=== PATIENT | female | born 1985 | race Caucasian/White ===

== ENCOUNTER → 2017-05-10 14:30 | Outpatient (CLI) | payer BC, SELFPAY ==
[2017-05-10 18:43] LABS: Chlamydia Trachomatis by PCR Negative (Negative); Neisserai gonorrhoeae by PCR Negative (Negative); Probe Check PASS; Sample Adequacy Control PASS; Specimen Processing Control PASS
[2017-05-18 08:12] LABS: HPV HC, High Risk Negative (Negative)
[2017-05-18 08:13] LABS: HPV Reflexed? YES, CHARGE PATIENT
== END ==
PROVIDERS: Visit Provider Obstetrics & Gynecology
DX: Z12.4 Encounter for screening for malignant neoplasm of cervix (principal); Z11.3 Encounter for screening for infections with a predominantly sexual mode of transmission
CPT/HCPCS: 87491; 87591; 87624; 88175; G0145

== ENCOUNTER → 2017-05-25 14:31 | Outpatient (CLI) | payer BC, SELFPAY ==
[2017-05-25 17:10] LABS: Color, Urine Yellow (Yellow); Glucose, Dipstick Normal (Normal); Ketone-Dipstick Negative (Negative); Leukocyte Esterase-Dipstick Negative /ul (Negative); Nitrite-Dipstick Negative (Negative); Occult Blood-Urine Negative /ul (Negative); Protein-Dipstick Negative (Negative); Urine Bilirubin Dipstick Negative (Negative); Urine Clarity Sl. Cloudy (Clear); Urine Urobilinogen Normal (Normal)
[2017-05-25 17:17] LABS: Absolute Lymphocyte Count 2.01 X10^3/ul (0.83-4.51); Absolute Neutrophil Count 8.1 X10^3/uL (2.0-7.7); Basophil# 0.02 X10^3/uL; Basophil% 0.2 % (0-1); Eosinophil# 0.03 X10^3/uL; Eosinophils% 0.3 % (0-5); Hematocrit 40.8 % (37-47); Hemoglobin 13.6 g/dl (12.0-15.0); Lymphocyte # 2.01 X10^3/ul (4.0); Lymphocyte % 18.6 % (19-41); Mean Corp Hgb Conc 33.3 g/gl (32-36); Mean Corpuscular Hgb 30.7 pg (27.0-32.0); Mean Corpuscular Volume 92.1 fL (81-99); Mean Platelet Vol. 10.9 fl (6.2-12.0); Monocyte# 0.56 X10^3/uL; Monocyte% 5.2 % (0-10); Neutrophil # 8.13 X10^3/uL (2.7-7.7); Neutrophil % 75.4 % (47-70); Platelet Count 325 K/mm3 (150-450); RBC Distribution Width SD 43.4 fl (35.1-43.9); Red Blood Count 4.43 M/mm3 (4.2-5.4); White Blood Count 10.8 K/mm3 (4.4-11.0)
[2017-05-25 17:19] LABS: POSITIVE COUNT NO; POSITIVE DIFFERENTIAL NO; POSITIVE MORPHOLOGY NO
[2017-05-25 18:01] LABS: Thyroid Stim Hormone (TSH) 0.45 uIU/mL (0.358-3.74)
[2017-05-25 18:39] LABS: HIV - WCH Non-Reactive (Nonreactive); Rubella IgG 155.9 IU/mL
[2017-05-27 10:10] LABS: HEPATITIS B SURFACE AG Negative (Negative); Hep C Antibodies 0.1 s/co ratio (0.0-0.9)
[2017-06-01 03:14] LABS: Prenatal RPR NONREACTIVE (NONREACTIVE)
== END ==
PROVIDERS: Visit Provider Obstetrics & Gynecology
DX: Z34.81 Encounter for supervision of other normal pregnancy, first trimester (principal); Z3A.00 Weeks of gestation of pregnancy not specified
CPT/HCPCS: 36415; 81002; 84443; 85025; 86703; 86762; 86803; 87340

== ENCOUNTER → 2017-06-22 11:55 | Outpatient (CLI) | payer BC, SELFPAY ==
[2017-06-22 13:47] LABS: Anion Gap 6 (5-15); BUN 8 mg/dL (7-18); BUN/Creat Ratio 12.6 RATIO (10-20); Calcium,Total 8.5 mg/dL (8.5-10.1); Chloride 106 mmol/L (98-107); Creatinine, Serum 0.63 mg/dL (0.55-1.02); EST Glomerular Filtration Rate 117 mL/min (>60); Est Glom Filt Rate - Afr Amer 142 mL/min (>60); Glucose 92 mg/dL (74-106); Potassium 3.9 mmol/L (3.5-5.1); Sodium Level 137 mmol/L (136-145)
== END ==
PROVIDERS: Visit Provider Obstetrics & Gynecology
DX: O21.9 Vomiting of pregnancy, unspecified (principal); Z3A.00 Weeks of gestation of pregnancy not specified
CPT/HCPCS: 36415; 80048

== ENCOUNTER → 2017-07-16 14:54 | Outpatient (CLI) | payer BC, SELFPAY | PROVIDERS: Visit Provider Obstetrics & Gynecology | DX: J02.9 Acute pharyngitis, unspecified (principal) | CPT/HCPCS: 87880 ==

== ENCOUNTER → 2017-09-28 10:17 | Outpatient (CLI) | payer BC, SELFPAY ==
[2017-09-28 13:50] LABS: Hematocrit 34.6 % (37-47); Hemoglobin 11.5 g/dl (12.0-15.0); Mean Corp Hgb Conc 33.2 g/gl (32-36); Mean Corpuscular Hgb 30.4 pg (27.0-32.0); Mean Corpuscular Volume 91.5 fL (81-99); Mean Platelet Vol. 10.5 fl (6.2-12.0); Platelet Count 252 K/mm3 (150-450); RBC Distribution Width CV 12.9 % (11.6-14.6); RBC Distribution Width SD 42.7 fl (35.1-43.9); Red Blood Count 3.78 M/mm3 (4.2-5.4); White Blood Count 10.1 K/mm3 (4.4-11.0)
[2017-09-28 13:55] LABS: Scan Indicated on CBC? Y/N NO
[2017-09-28 14:10] LABS: Glucose Challenge Gest 1H 50g 137 mg/dL (70-140)
== END ==
PROVIDERS: Visit Provider Obstetrics & Gynecology
DX: Z34.82 Encounter for supervision of other normal pregnancy, second trimester (principal)
CPT/HCPCS: 36415; 82950; 85027

== ENCOUNTER 2017-11-16 12:20 | Outpatient (CLI) | payer BC, SELFPAY ==
[2017-11-16 12:26] VITALS: BMI 36.6
[2017-11-16 13:05] LABS: ROM Internal Control Test YES-OK TO RESULT pt. (Internal QC); ROM Patient Test Negative (Negative)
--- NOTE | 2017-11-17 09:36 | OB.TRI.NOTE ---
History of Present Illness Date of Service: 11/16/17 Was patient seen by the physician?: No Reason For Visit: FALL Date of Service: 11/16/17 Final JUANCHO: 12/22/17 Gestational age: 34 Weeks and 6 Days History of Present Illness: 34+ week IUP presents s/p minor fall. Allergies Penicillins Allergy (Verified 11/16/17 12:41) Anaphylaxis NST - FHR Rate Baby A NST Reactive:: Yes FHR Category:: Category I Impression/Plan 34+ week IUP s/p minor fall. Reactive NST. ROM negative. Release to home with routine instructions.
== END 2017-11-16 13:55 | disposition home or self-care (01) ==
LOC: WPOUT 12:23 → WP 12:24
PROVIDERS: Visit Provider Obstetrics & Gynecology
DX: O26.93 Pregnancy related conditions, unspecified, third trimester (principal); W19.XXXA Unspecified fall, initial encounter; Y93.9 Activity, unspecified; Y92.9 Unspecified place or not applicable; Y99.9 Unspecified external cause status; Z3A.34 34 weeks gestation of pregnancy
CPT/HCPCS: 59025; 59050; 84112; 99218; G0378

== ENCOUNTER → 2017-11-23 11:17 | Outpatient (CLI) | payer BC, SELFPAY ==
[2017-11-23 11:50] LABS: ROM Internal Control Test YES-OK TO RESULT pt. (Internal QC); ROM Patient Test Negative (Negative)
== END ==
PROVIDERS: Visit Provider Obstetrics & Gynecology
DX: Z34.83 Encounter for supervision of other normal pregnancy, third trimester (principal)
CPT/HCPCS: 84112

== ENCOUNTER 2017-12-18 05:25 | Inpatient (IN) | payer BC, SELFPAY ==
[2017-12-13 11:00] VITALS: BMI 37.4
[2017-12-18] VITALS (24 sets, daily range): BP systolic 90–131; BP diastolic 42–71; PULSE 50–107; RESP 14–18; TEMP 35.9–36.8; O2SAT 97–100; BMI 37.7
--- NOTE | 2017-12-18 | FALS_PTH ---
PATIENT: MARA MOY LOC: [facility] U#:[id number] AGE/SX: 32/F ROOM: WP004 RE12/18/[address]: Dr. Ca Cervantes MD : 1985 BED: 1 DIS: 12/20/2017 SPEC #: [id number] RECD: 12/18/17 11:30 STATUS: JAYDEN RETyler #: [id number] STEFANIE: 12/18/17 00:[address]: Ca Cervantes DEPT: SURGICAL PATHOLOGY RECD BY: Juan Chacko ENTERED: 12/18/17 11:30 SP TYPE: FALL TUBES OTHR DR: No Primary Care Phys Tissues: Fallopian tube Procedures: Surgery Specimen Level II HEADER OPERATION: Tubal ligation PRE-OP DIAGNOSIS: Desires sterilization TISSUE SUBMITTED: Fallopian tubes, suture in right tube MICROSCOPIC DIAGNOSIS Bilateral fallopian tubes, tubal ligation: Completely transected segment of bilateral fallopian tubes, no pathologic diagnosis. FRIEDA:eliana 12/19/17 MICROSCOPIC DESCRIPTION Slides are reviewed. GROSS DESCRIPTION Received in fixative is one container labeled with the patient's name and designated right with suture. The specimen consists of two tubular pieces of moreno soft tissue with the right identified with a suture and measures 0.8 cm in length and 0.7 cm in diameter and is inked black. The left tube measures 1 cm in length and 0.7 cm in diameter. The entire specimen is submitted in one cassette. Both pieces will be sectioned at the time of embedding. / FRIEDA:eliana 12/18/17 TC: 4 CPT: 95572 x2
[2017-12-18] MEDS: Lactated Ringers 1,000 ML 999 ML IV (05:40)
[2017-12-18 06:12] LABS: Absolute Lymphocyte Count 2.76 X10^3/ul (0.83-4.51); Absolute Neutrophil Count 7.8 X10^3/uL (2.0-7.7); Basophil# 0.05 X10^3/uL; Basophil% 0.4 % (0-1); Eosinophils% 0.8 % (0-5); Hematocrit 32.7 % (37-47); Hemoglobin 10.3 g/dl (12.0-15.0); Lymphocyte # 2.76 X10^3/ul (4.0); Lymphocyte % 23.3 % (19-41); Mean Corp Hgb Conc 31.5 g/gl (32-36); Mean Corpuscular Volume 85.8 fL (81-99); Mean Platelet Vol. 11.1 fl (6.2-12.0); Monocyte# 1.02 X10^3/uL; Monocyte% 8.6 % (0-10); Neutrophil % 65.8 % (47-70); Platelet Count 286 K/mm3 (150-450); RBC Distribution Width CV 13.8 % (11.6-14.6); RBC Distribution Width SD 42.2 fl (35.1-43.9); Red Blood Count 3.81 M/mm3 (4.2-5.4); White Blood Count 11.9 K/mm3 (4.4-11.0)
[2017-12-18 06:14] LABS: POSITIVE COUNT NO; POSITIVE DIFFERENTIAL NO; POSITIVE MORPHOLOGY NO
[2017-12-18 06:16] LABS: Partial Thromboplast Time 28.5 Seconds (24.1-36.2)
[2017-12-18] MEDS: Lactated Ringers 1,000 ML 150 ML IV (06:47)
[2017-12-18] MEDS: Sodium Citrate/Citric Acid 30 ML UDC PO (06:50)
--- NOTE | 2017-12-18 07:13 | PCM.DCCSEC ---
Discharge Diet: No Restrictions Discharge Activity: May Shower, May Take a Tub Bath Return to work on:: 01/28/18 May resume sexual activity in: 4-6 weeks Lifting Restrictions: 20 pounds Additional Activity Instructions:: Nothing in the vagina for 4-6 weeks. You may return to work/school in 6 weeks. Change Dressing in (Days):: 4 Remove Dressing in (days):: 4 Cleanse incision/area with: Soap & Water, Keep Dressing Clean & Dry Additional Instructions: If you experience any of the following, contact your healthcare provider. Bleeding that soaks a pad every hour for 2 hours Fever 100.4 or higher Unrelieved incision or abdominal pain Swelling, redness, discharge or bleeding from your incision Problems urinating (including inability to urinate or burning while urinating). Visual changes Severe headache Flu-like symptoms Pain or redness in one of both of your breasts Pain, warmth, tenderness or swelling in your legs, especially the calf area Frequent nausea and vomiting Symptoms of depression or anxiety If you experience any of the following, call 911 or go to the nearest Emergency Room. Chest pain Problems breathing Seizure activity Partial or complete paralysis of a body part, slurred speech, weakness or drooping of the face, or a sudden inability to walk or hold your balance Allergies/Adverse Reactions: Allergies Penicillins Allergy (Verified 12/13/17 11:15) Anaphylaxis Medications to take at Discharge Docusate Sodium [Colace] 100 mg PO BID PRN #30 capsule 12/18/17 Naproxen [Naprosyn] 250 - 500 mg PO TID PRN #30 tablet 12/18/17 Oxycodone [Oxyir] 5 - 10 mg PO Q6H PRN PRN 7 Days #20 tablet 12/18/17 The following prescriptions were given: Oxycodone [Oxyir] 5 - 10 mg PO Q6H PRN PRN 7 Days #20 tablet PRN Reason: Mod-Severe Pain (-12/12) Docusate Sodium [Colace] 100 mg PO BID PRN #30 capsule Naproxen [Naprosyn] 250 - 500 mg PO TID PRN #30 tablet PRN Reason: Mild-Mod Pain (-07/12) Follow-Up: Call to make an appointment with your doctor for an incision check in 1-2 weeks. You will also need a 6 week post- follow up appointment. Test results from this visit will be discussed in further detail at your follow-up appointment, if applicable. Please Follow Up With: Ca Cervantes MD - [phone] When: Call to make an appointment for an incision check in 2 weeks. Primary Care Physician: Care Physician,No Primary [Primary Care Provider] - Proposed Discharge Date: 12/21/17
--- NOTE | 2017-12-18 07:18 | DCINST_ITS ---
Discharge Diet: No Restrictions Discharge Activity: May Shower, May Take a Tub Bath Return to work on:: 01/28/18 May resume sexual activity in: 4-6 weeks Lifting Restrictions: 20 pounds Additional Activity Instructions:: Nothing in the vagina for 4-6 weeks. You may return to work/school in 6 weeks. Change Dressing in (Days):: 4 Remove Dressing in (days):: 4 Cleanse incision/area with: Soap & Water, Keep Dressing Clean & Dry Additional Instructions: If you experience any of the following, contact your healthcare provider. * Bleeding that soaks a pad every hour for 2 hours * Fever 100.4 or higher * Unrelieved incision or abdominal pain * Swelling, redness, discharge or bleeding from your incision * Problems urinating (including inability to urinate or burning while urinating). * Visual changes * Severe headache * Flu-like symptoms * Pain or redness in one of both of your breasts * Pain, warmth, tenderness or swelling in your legs, especially the calf area * Frequent nausea and vomiting * Symptoms of depression or anxiety If you experience any of the following, call 911 or go to the nearest Emergency Room. * Chest pain * Problems breathing * Seizure activity * Partial or complete paralysis of a body part, slurred speech, weakness or drooping of the face, or a sudden inability to walk or hold your balance Allergies/Adverse Reactions: Allergies Penicillins Allergy (Verified 12/13/17 11:15) Anaphylaxis Medications to take at Discharge Docusate Sodium [Colace] 100 mg PO BID PRN #30 capsule 12/18/17 Naproxen [Naprosyn] 250 - 500 mg PO TID PRN #30 tablet 12/18/17 Oxycodone [Oxyir] 5 - 10 mg PO Q6H PRN PRN 7 Days #20 tablet 12/18/17 The following prescriptions were given: Oxycodone [Oxyir] 5 - 10 mg PO Q6H PRN PRN 7 Days #20 tablet PRN Reason: Mod-Severe Pain (-12/12) Docusate Sodium [Colace] 100 mg PO BID PRN #30 capsule Naproxen [Naprosyn] 250 - 500 mg PO TID PRN #30 tablet PRN Reason: Mild-Mod Pain (-07/12) Follow-Up: Call to make an appointment with your doctor for an incision check in 1-2 weeks. You will also need a 6 week post- follow up appointment. Test results from this visit will be discussed in further detail at your follow- up appointment, if applicable. Please Follow Up With: Ca Cervantes MD - [phone] When: Call to make an appointment for an incision check in 2 weeks. Primary Care Physician: Care Physician,No Primary [Primary Care Provider] - Proposed Discharge Date: 12/21/17
[2017-12-18] MEDS: Oxytocin 30 units/NS 500 ml 30 UNITS/500 ML IV.SOLN 167 UNITS IV (07:51)
[2017-12-18] MEDS: miSOPROStol 200 MCG Tablet 800 MCG RECTAL (08:25)
--- NOTE | 2017-12-18 08:29 | OP.PCM_ITS ---
Operative Report Date of Procedure: 12/18/17 PROCEDURE: Repeat C section. Bilateral partial salpingectomy Preoperative diagnosis: 39 wk EGA Prior C section, planned repeat C section Sterilization request H/O delayed postop anemia Postop diagnosis: 39 wk EGA Prior C section, planned repeat C section Sterilization request. H/o delayed postop anemia Anesthesia: Anibal, Dr Michael Surgeon: Ca Cervantes MD Underwriting Service Representative: LIONEL Robb and LIONEL Naidu EBL 600 cc Complications: none Drains: Ann draining clear yellow appearing urine Fluids: replacement LR Findings: At amniotomy, clear fluid was noted. Lizarraga viable male in vertex presentation. Apgars 8/9, Baby weight: 9#1 oz There was a normal appearing uterus, fallopian tubes and ovaries bilaterally. There were minimal filmy adhesions between the bladder and lower uterine segment. The lower uterine segment was thin, and a defect was noted and oversewn to repair and for hemostasis. PATH: Routine cord gases were sent. Narrative account: After the risks, benefits and alternatives of the procedure were reviewed with the patient, informed consent was obtained. The patient was taken to the Operating room with an IV running, and placed in a seated position on the operating table for placement of the spinal. Once the spinal had been administered, she was briefly frog-legged for Ann catheter placement, and then repositioned to dorsal supine position with leftward displacement of the uterus, and prepped and draped in the usual sterile fashion. Rosario had some initial hypotension after the spinal which required ephedrine. (See anesthesia record for medications given). Her nausea, vomiting responded to medications given. Once this resolved, and the spinal was deemed adequate, a Pfannenstiel skin incision was created using the knife (through the prior skin incision scar). The incision was carried down to the rectus fascia using the knife. The fascia was nicked in the midline. The fascial incision was extended bilaterally using curved Romero scissors. The superior aspect of the fascial incision was grasped with Sharonda clamps and tented up and the underlying rectus abdominal muscles were dissected free. In a similar manner, the inferior aspect of the facial incision was grasped with Sharonda clamps tented up and the underlying rectus abdominal muscles were dissected free. The rectus abdominis muscles were in the midline and the peritoneum was identified and entered by blunt dissection high in the incision. The peritoneum was stretched laterally and a bladder blade was inserted. A bladder flap was created along the lower uterine segment with Metzenbaum scissors . The uterine incision was then created using Metzenbaum scissors. The operators fingertips were used to extend the uterine incision by blunt dissection in a caudad- cephalad orientation . Clear fluid was noted at amniotomy. The vertex was then delivered atraumatically through the incision. The OP and nares were bulb suctioned on the abdomen. The shoulders delivered easily. The cord clamped x two and cut. And the infant was handed off to the nurse awaiting delivery after briefly showing him to his parents. The baby had a spontaneous, vigorous cry. The placenta was then delivered. The uterus was exteriorized and cleared of clots and debris . The uterine incision was repaired with 1 Vicryl in a running locked fashion. The lower uterine segment was extremely thin and a vertical tear was noted. The bilateral partial salpingectomy was performed as follows. the R fallopian tube was tented up with a [place]araka clamp and a window was created in the mesosalpinx using Bovie cautery. The proximal and distal fallopian tube adjacent to the peritoneal defect were ligated with 2-0 Catgut. A knuckle of the fallopian tube was tented up and a third ligature was placed inferior to the other two. A segment of the fallopian tube was excised with Metzenbaum scissors and set aside for later pathology review. The stumps of the fallopian tube were Bovie cauterized for hemostasis . The left fallopian partial salpingectomy was performed likewise. At this point the uterus was returned to the abdominal cavity. The gutters were cleared of clots and debris and the incision at the uterus was inspected. The vertical tear at the lower uterine segment was oversewn with a figure of 8 stitch of 1 Vicryl. A second imbricating layer was then placed, using 1 Monocryl in running nonlocked fashion , reapproximating the bladder flap for hemostasis. Bovie cautery was used to treat any bleeding areas . Excellent hemostasis was noted. The peritoneal edges and rectus abdominis muscles were reapproximated in the midline with interrupted vertical mattress stitches of 1 Vicryl. Excellent hemostasis was noted at the subfascial space The fascia was closed in a running nonlocked fashion with a Stratofix. The Subcutaneous fatty tissue was liberally dusted with Ryan for hemostasis and to prevent seroma formation. This layer was then reapproximated in a running 3-0 Vicryl to eliminate space. The skin edges were closed in a Subcuticular stitch of 4- 0 Monocryl. The incision was cleansed. Cavilon, Steristrips, and Mepilex dressing were applied to the skin . The patient was then transferred to the recovery room bed in stable condition after tolerating the procedure well. Sponge, lap, needle and instrument counts correct times two. Medications given preop and intraoperatively included: Ancef IV given motor power connector to the operating room. The patient also received Pitocin given IV after cord clamp, and Toradol 30 mg IV times one. Ephedrine for hypotension. Cytotec 800 mcg per rectum for her history of postoperative anemia, delayed, after her first C section. For a complete listing of medications given preop and intraoperatively, please see the anesthesia record.
--- NOTE | 2017-12-18 08:31 | PCM.IMDPSTOP ---
Immediate Post-Op Note Primary Surgeon/Physician: Ca Cervantes
[2017-12-18] MEDS: Lactated Ringers 1,000 ML 100 ML IV ×2 (08:50→16:29)
--- NOTE | 2017-12-18 08:51 | OP.PN_ITS ---
Immediate Post-Op Note Primary Surgeon/Physician: Ca Cervantes
[2017-12-18] MEDS: Scopolamine 1mg/72hr Patch 1 PATCH TRANSDERM. (09:26)
[2017-12-18] MEDS: proMETHazine 25 MG/ML Syringe 12.5 MG IV (11:48)
[2017-12-18] MEDS: Ketorolac 30 MG/ML Syringe IV ×2 (15:16→21:23)
--- NOTE | 2017-12-18 17:53 | CPS ---
patient nursing baby right now, she will start incentive when done
[2017-12-18] MEDS: 0.9% Saline Lock 10 ML Syringe IV (21:23)
[2017-12-19] VITALS (7 sets, daily range): BP systolic 107–112; BP diastolic 45–62; PULSE 78–107; RESP 15–18; TEMP 36.1–36.9; O2SAT 96–100
[2017-12-19] MEDS: Ketorolac 30 MG/ML Syringe IV ×4 (03:12→22:53)
[2017-12-19] MEDS: 0.9% Saline Lock 10 ML Syringe IV ×3 (03:13→16:42)
[2017-12-19] MEDS: Lactated Ringers 1,000 ML 100 ML IV (03:13)
[2017-12-19 06:09] LABS: Hematocrit 26.6 % (37-47); Hemoglobin 8.6 g/dl (12.0-15.0); Mean Corp Hgb Conc 32.3 g/gl (32-36); Mean Corpuscular Hgb 28.2 pg (27.0-32.0); Mean Corpuscular Volume 87.2 fL (81-99); Mean Platelet Vol. 10.7 fl (6.2-12.0); Platelet Count 245 K/mm3 (150-450); RBC Distribution Width CV 13.6 % (11.6-14.6); RBC Distribution Width SD 41.7 fl (35.1-43.9); Red Blood Count 3.05 M/mm3 (4.2-5.4); White Blood Count 14.4 K/mm3 (4.4-11.0)
[2017-12-19 06:17] LABS: Scan Indicated on CBC? Y/N NO
--- NOTE | 2017-12-19 07:39 | PCM.PN.OB ---
Subjective: POD#1 Repeat C/S and BPS Doing well. No concerns voiced. States baby cluster feeding, about every 45 min all night. Poor sleep Very minimal pain, soreness. Asking about possible dischg home tomorrow. - Physical Exam General: Alert, Oriented x3, Cooperative, No apparent distress HEENT: Atraumatic Neck: Supple Abdomen: Soft - Fundus firm NT at 1-2 cm inferior to umbilicus Skin: Incision - Mepilex CDI. Three 1 cm areas of old blood, shadow drainage marked without extension. Neurological: Cranial nerves II-XII grossly intact Psych/Mental Status: Normal Affect Vital Signs Temp Pulse Resp BP Pulse Ox 98.5 F 78 16 107/51 L 98 12/19/17 00:00 12/19/17 05:37 12/19/17 05:37 12/19/17 04:00 12/19/17 05:37 Oxygen Flow Rate (L/min) 2 Oxygen Delivery Method Room Air Weight: 93.6 kg Body Mass Index (BMI) 37.7 Intake and Output for Last 24 Hours 12/17/12/18/18 12/19/17 23:59 23:59 23:59 Intake Total 1300 / 1300 1015 / 1015 Output Total 400 / 400 950 / 950 Balance 900 / 900 65 / 65 Laboratory Tests Past 24 Hrs 12/19/17 05:47 WBC 14.4 H RBC 3.05 L Hgb 8.6 L Hct 26.6 L MCV 87.2 MCH 28.2 MCHC 32.3 RDW 13.6 RDW Differential 41.7 Plt Count 245 MPV 10.7 Medical Necessity - Tobacco Use Smoking Status: Never smoker Assessment/Plan POD#1 Repeat C/S and BPS Doing well. Pain minimal. Increase diet and activity as tolerated. Begin po meds. D/C Ann for voiding trial. Continue care. PREOPERATIVE iron deficiency anemia, with superimposed acute blood loss anemia. As expected with operative blood loss, IV hydration Ferrous sulfate 325 mg po bid
[2017-12-19] MEDS: Ferrous Sulfate 325 MG Tablet PO ×2 (12:51→16:43)
[2017-12-19] MEDS: oxyCODONE 5 MG Tablet PO ×2 (13:01→21:35)
[2017-12-19 15:06] LABS: Pathology Specimen OB SEE PATHOLOGY REPORT
[2017-12-20 02:45] VITALS: BP 108/53; PULSE 86; RESP 18; TEMP 36.8; O2SAT 100
[2017-12-20] MEDS: Ketorolac 30 MG/ML Syringe IV (05:53)
[2017-12-20] MEDS: 0.9% Saline Lock 10 ML Syringe IV (05:53)
[2017-12-20 10:00] VITALS: BP 111/49; PULSE 98; RESP 20; TEMP 36.9
== END 2017-12-20 11:50 | disposition home or self-care (01) | DRG 784 ==
PROVIDERS: Admitting Provider Obstetrics & Gynecology; Visit Provider Obstetrics & Gynecology
PROC: 10D00Z1 Extraction of Products of Conception, Low, Open Approach (ICD-10-PCS; CPT 59514; principal; 2017-12-18 07:15)
DX: O34.219 Maternal care for unspecified type scar from previous cesarean delivery (principal); Z30.2 Encounter for sterilization; D62 Acute posthemorrhagic anemia; D50.9 Iron deficiency anemia, unspecified; Z3A.39 39 weeks gestation of pregnancy; Z37.0 Single live birth
CPT/HCPCS: 85025; 85027; 85610; 85730; 86850; 86900; 88302; 99218; J7120; 90686; A4216; G0378; J2405

== ENCOUNTER → 2017-12-31 11:11 | Outpatient (CLI) | payer BC, SELFPAY ==
[2017-12-31 13:43] LABS: Hematocrit 36.5 % (37-47); Hemoglobin 11.5 g/dl (12.0-15.0); Mean Corp Hgb Conc 31.5 g/gl (32-36); Mean Corpuscular Hgb 27.4 pg (27.0-32.0); Mean Corpuscular Volume 86.9 fL (81-99); Mean Platelet Vol. 10.1 fl (6.2-12.0); Platelet Count 505 K/mm3 (150-450); RBC Distribution Width SD 43.1 fl (35.1-43.9)
[2017-12-31 13:44] LABS: Scan Indicated on CBC? Y/N NO
== END ==
PROVIDERS: Visit Provider Obstetrics & Gynecology
DX: D64.9 Anemia, unspecified (principal)
CPT/HCPCS: 36415; 85027

== ENCOUNTER → 2018-03-15 15:47 | Outpatient (CLI) | payer OTHER, SELFPAY ==
[2017-12-18 05:40] VITALS: BMI 37.7
[2018-03-15 16:55] LABS: Thyroid Stim Hormone (TSH) 1.07 uIU/mL (0.358-3.74); Vitamin D,25 Hydroxy 18.8 ng/mL (29.95-100.01)
== END ==
PROVIDERS: Visit Provider Obstetrics & Gynecology
DX: F53.0 Postpartum depression (principal)
CPT/HCPCS: 36415; 82306; 84443

== ENCOUNTER → 2019-02-19 09:39 | Outpatient (CLI) | payer OTHER, SELFPAY ==
[2019-01-15 09:34] VITALS: BMI 37.7
[2019-02-19 10:59] LABS: Vitamin D,25 Hydroxy 18.2 ng/mL (29.95-100.01)
[2019-02-21 12:07] LABS: Age Gdln ACOG Testing 30-65 (.)
[2019-02-21 16:31] LABS: HPV APTIMA, High Risk Negative (Negative); HPV Reflexed? YES, CHARGE PATIENT
== END ==
PROVIDERS: Visit Provider Obstetrics & Gynecology
DX: E55.9 Vitamin D deficiency, unspecified (principal); Z12.4 Encounter for screening for malignant neoplasm of cervix
CPT/HCPCS: 36415; 82306; 87624; 88175; G0145

== ENCOUNTER → 2019-10-06 14:08 | Outpatient (CLI) | payer OTHER, SELFPAY ==
[2019-10-06 13:54] VITALS: BMI 37.7
[2019-10-06 15:15] LABS: Absolute Lymphocyte Count 3.39 X10^3/uL (0.83-4.51); Absolute Neutrophil Count 5.8 X10^3/uL (2.0-7.7); Basophil# 0.05 X10^3/uL; Basophil% 0.5 % (0-1); Eosinophil# 0.09 X10^3/uL; Eosinophils% 0.9 % (0-5); Hematocrit 39.9 % (37-47); Hemoglobin 13.1 g/dL (12.0-15.0); Lymphocyte # 3.39 X10^3/ul (4.0); Lymphocyte % 34.3 % (19-41); Mean Corp Hgb Conc 32.8 g/dL (32-36); Mean Corpuscular Hgb 30.5 pg (27.0-32.0); Mean Corpuscular Volume 92.8 fL (81-99); Mean Platelet Vol. 10.6 fl (6.2-12.0); Monocyte# 0.55 X10^3/uL; Monocyte% 5.6 % (0-10); NRBC Flagged by Analyzer 0 % (0-5); Neutrophil # 5.78 X10^3/uL (2.7-7.7); Neutrophil % 58.4 % (47-70); Platelet Count 368 K/mm3 (150-450); RBC Distribution Width CV 12.3 % (11.6-14.6); RBC Distribution Width SD 41.1 fl (35.1-43.9); White Blood Count 9.9 K/mm3 (4.4-11.0)
[2019-10-06 15:30] LABS: AST(SGOT) 11 U/L (15-37); Alanine Aminotransfer ALT/SGPT 20 U/L (13-56); Albumin, Serum 4.2 g/dL (3.2-5.0); Alkaline Phosphatase 56 U/L (45-117); Anion Gap 8 (5-15); BUN 15 mg/dL (7-18); Calcium,Total 9.5 mg/dL (8.5-10.1); Chloride 108 mmol/L (98-107); Cholesterol 187 mg/dL (200); Creatinine, Serum 0.88 mg/dL (0.55-1.02); EST Glomerular Filtration Rate 79 mL/min (>60); Est Glom Filt Rate - Afr Amer 96 mL/min (>60); Glucose 95 mg/dL (74-106); High Density Lipoprotein 41 mg/dL; Potassium 3.7 mmol/L (3.5-5.1); Protein, Total 8.2 g/dL (6.4-8.2); Sodium Level 139 mmol/L (136-145); Triglycerides 125 mg/dL; Very Low Density Lipoprotein 25 mg/dL (5-40)
== END ==
PROVIDERS: PCP Internal Medicine; Referring Provider Internal Medicine; Visit Provider Internal Medicine
DX: Z00.00 Encounter for general adult medical examination without abnormal findings (principal)
CPT/HCPCS: 36415; 80053; 80061; 85025

== ENCOUNTER → 2020-04-09 09:51 | Outpatient (CLI) | payer OTHER, SELFPAY ==
[2020-04-09 09:23] VITALS: BMI 32.1
[2020-04-09 12:23] LABS: Absolute Neutrophil Count 2.5 X10^3/uL (2.0-7.7); Basophil# 0.03 X10^3/uL; Basophil% 0.6 % (0-1); Eosinophil# 0.11 X10^3/uL; Eosinophils% 2.3 % (0-5); Hematocrit 39.2 % (37-47); Hemoglobin 13.3 g/dL (12.0-15.0); Lymphocyte % 37.7 % (19-41); Mean Corp Hgb Conc 33.9 g/dL (32-36); Mean Corpuscular Hgb 31.1 pg (27.0-32.0); Mean Corpuscular Volume 91.8 fL (81-99); Mean Platelet Vol. 10.7 fl (6.2-12.0); Monocyte# 0.34 X10^3/uL; Monocyte% 7.1 % (0-10); NRBC Flagged by Analyzer 0 % (0-5); Neutrophil # 2.49 X10^3/uL (2.7-7.7); Neutrophil % 52.1 % (47-70); Platelet Count 331 K/mm3 (150-450); RBC Distribution Width CV 12.3 % (11.6-14.6); RBC Distribution Width SD 41.1 fl (35.1-43.9); Red Blood Count 4.27 M/mm3 (4.2-5.4); White Blood Count 4.8 K/mm3 (4.4-11.0)
[2020-04-09 13:06] LABS: AST(SGOT) 18 U/L (15-37); Alanine Aminotransfer ALT/SGPT 29 U/L (13-56); Alkaline Phosphatase 61 U/L (45-117); Anion Gap 8 (5-15); BUN 13 mg/dL (7-18); BUN/Creat Ratio 16.2 RATIO (10-20); Calcium,Total 8.8 mg/dL (8.5-10.1); Chloride 107 mmol/L (98-107); EST Glomerular Filtration Rate 88 mL/min (>60); Est Glom Filt Rate - Afr Amer 106 mL/min (>60); Glucose 97 mg/dL (74-106); Potassium 3.9 mmol/L (3.5-5.1); Sodium Level 139 mmol/L (136-145); T4 Free Direct 1.13 ng/dL (0.76-1.46)
[2020-04-09 13:21] LABS: Vitamin B12 619 pg/mL (211-911); Vitamin D,25 Hydroxy 15.2 ng/mL
== END ==
PROVIDERS: Nurse Practitioner Family; PCP Internal Medicine; Referring Provider Internal Medicine; Visit Provider Internal Medicine
DX: E56.9 Vitamin deficiency, unspecified (principal); R53.83 Other fatigue
CPT/HCPCS: 36415; 80053; 82306; 82607; 84439; 84443; 85025

== ENCOUNTER 2020-06-16 07:08 | Emergency (ER) | payer OTHER, SELFPAY ==
[2020-04-09 09:23] VITALS: BMI 32.1
[2020-06-16 07:09] VITALS: BP 153/92; PULSE 68; RESP 16; TEMP 36.6; O2SAT 99; BMI 33.0
--- NOTE | 2020-06-16 07:12 | CT_ITS ---
STUDY: CT ABDOMEN AND PELVIS WITHOUT CONTRAST REASON FOR EXAM: Female, 34 years old. Kidney Stone RADIATION DOSAGE (If Supplied By Facility): CTDIvol = ( 10.32 ) mGy, DLP = ( 515.85 ) mGycm TECHNIQUE: Transaxial images were obtained from the dome of the diaphragm to the symphysis pubis without oral contrast, and without intravenous contrast. Sagittal and coronal images were reconstructed. Individualized dose optimization techniques were used for this CT. COMPARISON: None. FINDINGS: The visualized lung bases are unremarkable. Normal liver. There are surgical clips in the gallbladder fossa consistent with a prior cholecystectomy. Normal spleen. Normal pancreas. There are small calcifications of the right adrenal glands. There is mild hydroureteronephrosis on the right. There is a 3 mm calcification at the right UVJ/bladder (axial image #150 series 2) There is a 2 mm calcification at the inferior pole of the left kidney. There is no hydronephrosis. Normal visualized stomach. Normal small intestine. There is mild amount retained stool within the colon. The appendix is visualized and appears normal. Normal abdominal aorta. Normal urinary bladder. Normal abdominal wall. Normal osseous structures. CT/Abdomen/Pelvis without Cont IMPRESSION: 3 mm right UVJ calculus with mild hydroureteronephrosis. small left renal calculus. Mild fecal stasis. Electronically Signed: Sejal Hernandez MD at 8:36 EDT Tel , Service support ,
--- NOTE | 2020-06-16 07:17 | ED.DCSUM_ITS ---
History of Present Illness Chief Complaint: Flank Pain Informant: Patient Narrative: 34-year-old female presents with 1 hour of right flank and lower abdominal pain. She states she has a history of kidney stones and this feels similar. In 2017 she states that while she was in [place] she had lithotripsy and stent placement. Pain began suddenly this morning is severe and stabbing. She notes nausea and vomiting. No fevers. No dysuria. - Past Medical History (1) Chronic constipation Status: Chronic Past Medical History - Allergies and Home Meds Allergies/Adverse Reactions: Allergies Penicillins Allergy (Verified 06/16/20 07:09) Anaphylaxis Primary Care Physician: Jose Zhao MD [Primary Care Provider] - Past Medical History: - - Kidney stone history Surgical History: - - 2017 lithotripsy with ureteral stent Smoking Status: Never smoker Drugs: None Review of Systems General: Denies: Chills, Fever, Sweats Eyes: Denies: Visual changes - bilaterally, Diplopia ENT: Denies: Rhinorrhea, Sore throat Cardiovascular: Denies: Chest pain, Palpitations Respiratory: Denies: Dyspnea, Cough, Dyspnea on exertion Gastrointestinal: Reports: Abdominal pain, Nausea, Vomiting. Denies: Diarrhea, Melena, Hematochezia Genitourinary: Reports: - - Right flank pain. Denies: Dysuria, Hematuria, Frequency Musculoskeletal: Denies: Back pain, Extremity Pain Skin: Denies: Rash, Wounds Neurological: Denies: Headache, Weakness, Numbness Physical Exam Vital Signs/Narrative: Vital Signs Temp Pulse Resp BP Pulse Ox 06/16/20 07:09 98 F 68 16 153/92 H 99 Inital Vital Signs reviewed: Yes General: Well nourished, Well developed, No Acute Distress, - - Patient appears very uncomfortable. She is holding a bag of emesis. Head: Normocephalic, Atraumatic Eyes: Perrl, EOMI ENT: Moist mucous membranes, No rhinorrhea Neck: Supple, Nontender Cardiovascular: Regular rate, Regular rhythm, No murmurs Respiratory: No distress, CTA bilaterally, Chest nontender Abdomen: Soft, Nontender, Nondistended, Normal bowel sounds Back: Nontender, Normal Inspection Extremities: Nontender, No edema Skin: Normal color, No rash Neurological: Alert, Oriented x3, Cranial nerves II-XII grossly intact, Normal Strength, Normal Sensation Psychological: - - Patient appears in pain Diagnostic/Tx/Re-eval Clinical Impression(s) from Imaging Studies Abdomen/Pelvis CT 06/16/20 07:12 IMPRESSION: 3 mm right UVJ calculus with mild hydroureteronephrosis. small left renal calculus. Mild fecal stasis. Electronically Signed: Sejal Hernandez MD at 8:36 EDT Tel , Service support , Laboratory Last Values WBC 10.5 K/mm3 (4.4-11.0) 06/16/20 07:18 RBC 4.48 M/mm3 (4.2-5.4) 06/16/20 07:18 Hgb 13.6 g/dL (12.0-15.0) 06/16/20 07:18 Hct 41.5 % (37-47) 06/16/20 07:18 MCV 92.6 fL (81-99) 06/16/20 07:18 MCH 30.4 pg (27.0-32.0) 06/16/20 07:18 MCHC 32.8 g/dL (32-36) 06/16/20 07:18 RDW Std Deviation 41.2 fl (35.1-43.9) 06/16/20 07:18 RDW Coeff of Garcia 12.1 % (11.6-14.6) 06/16/20 07:18 Plt Count 406 K/mm3 (150-450) 06/16/20 07:18 MPV 10.0 fl (6.2-12.0) 06/16/20 07:18 Immature Gran % (Auto) 0.200 % (0.0-0.9) 06/16/20 07:18 Neut % (Auto) 47.0 % (47-70) 06/16/20 07:18 Lymph % (Auto) 43.4 % (19-41) H 06/16/20 07:18 [place] % (Auto) 7.0 % (0-10) 06/16/20 07:18 Eos % (Auto) 1.8 % (0-5) 06/16/20 07:18 Baso % (Auto) 0.6 % (0-1) 06/16/20 07:18 Absolute Neuts (auto) 4.9 X10^3/uL (2.0-7.7) 06/16/20 07:18 Absolute Lymphs (auto) 4.57 X10^3/uL (0.83-4.51) H 06/16/20 07:18 Nucleated RBC % 0 % (0-5) 06/16/20 07:18 Sodium 139 mmol/L (136-145) 06/16/20 07:18 Potassium 3.9 mmol/L (3.5-5.1) 06/16/20 07:18 Chloride 108 mmol/L (98-107) H 06/16/20 07:18 Carbon Dioxide 26.0 mmol/L (21.0-32.0) 06/16/20 07:18 Anion Gap 5 (5-15) 06/16/20 07:18 BUN 14 mg/dL (7-18) 06/16/20 07:18 Creatinine 0.93 mg/dL (0.55-1.02) 06/16/20 07:18 Estim Creat Clear Calc 68.69 ml/min 06/16/20 07:18 Est GFR (MDRD) Af Amer 90 mL/min (>60) 06/16/20 07:18 Est GFR (MDRD) Non-Af 74 mL/min (>60) 06/16/20 07:18 BUN/Creatinine Ratio 15.1 RATIO (10-20) 06/16/20 07:18 Glucose 114 mg/dL (74-106) H 06/16/20 07:18 Calcium 9.3 mg/dL (8.5-10.1) 06/16/20 07:18 Urine Color Yellow (Yellow) 06/16/20 07:50 Urine Clarity Sl. Cloudy (Clear) 06/16/20 07:50 Urine pH 5.0 (5.0 - 8.0) 06/16/20 07:50 Ur Specific [place] 1.030 (1.002-1.030) 06/16/20 07:50 Urine Protein 15 mg/dl (Negative) H 06/16/20 07:50 Urine Glucose (UA) Normal mg/dl (Normal) 06/16/20 07:50 Urine Ketones Negative mg/dl (Negative) 06/16/20 07:50 Urine Occult Blood 250 /ul (Negative) H 06/16/20 07:50 Urine Nitrite Negative (Negative) 06/16/20 07:50 Urine Bilirubin Negative mg/dL (Negative) 06/16/20 07:50 Urine Urobilinogen Normal mg/dl (Normal) 06/16/20 07:50 Ur Leukocyte Esterase 25 /ul (Negative) H 06/16/20 07:50 Urine RBC 0-5 SEEN /hpf (0-5) 06/16/20 07:50 Urine WBC 0 SEEN /hpf (0-5) 06/16/20 07:50 Ur Squamous Epith Cells 0-5 SEEN /hpf (5-10) 06/16/20 07:50 Urine Bacteria RARE /hpf (None Seen) 06/16/20 07:50 Urine Mucus 0 SEEN /hpf (<or=2+) 06/16/20 07:50 Urine Test Negative Negative 06/16/20 07:50 - Medical Decision Making Patient received IV fluids, Toradol, morphine, and Zofran. She is feeling significantly better on repeat examination. Urinalysis shows no obvious infection. She has a normal creatinine normal white blood cell count. CT of the abdomen pelvis demonstrates mild hydronephrosis and hydroureter associated with a distal 3 mm UVJ stone. I will write for the patient have Toradol, Percocet, and Flomax at home. I will also write for Zofran. I will refer her to local urology. Return if worsening or concerns ED Disposition - Plan for ED Patient: Disposition: Home or Assisted Living Diagnosis: Ureteral stone with hydronephrosis, Renal colic on right side Instructions: ED Kidney Stone w/ Colic Prescriptions: Tamsulosin HCl [Flomax] 0.4 mg PO DAILY #7 capsule Transmission Status: Pending to [facility] Oxycodone HCl/Acetaminophen [Percocet 5/325] 1 tablet PO Q6H PRN PRN 3 Days #12 tablet PRN Reason: Pain Transmission Status: Received by [facility] Ketorolac [Toradol] 10 mg PO TID PRN PRN #15 tablet PRN Reason: Pain Transmission Status: [facility] Ondansetron [Zofran Odt] 4 mg PO Q6H PRN PRN #10 tablet PRN Reason: Nausea Transmission Status: Pending to [facility] Referrals: Suresh Gordon MD [STAFF PHYSICIAN] - (for urology follow up)
[2020-06-16] MEDS: Ketorolac 30 MG/ML Syringe IV (07:22)
[2020-06-16] MEDS: Ondansetron 4 MG/2 ML Vial IV (07:23)
[2020-06-16] MEDS: Morphine 4 MG/ML Syringe IV ×2 (07:24→08:15)
[2020-06-16] MEDS: 0.9% Normal Saline 1,000 ML 250 ML IV (07:27)
[2020-06-16 07:28] LABS: Absolute Lymphocyte Count 4.57 X10^3/uL (0.83-4.51); Absolute Neutrophil Count 4.9 X10^3/uL (2.0-7.7); Basophil# 0.06 X10^3/uL; Basophil% 0.6 % (0-1); Eosinophil# 0.19 X10^3/uL; Eosinophils% 1.8 % (0-5); Hematocrit 41.5 % (37-47); Hemoglobin 13.6 g/dL (12.0-15.0); Lymphocyte # 4.57 X10^3/ul (4.0); Lymphocyte % 43.4 % (19-41); Mean Corp Hgb Conc 32.8 g/dL (32-36); Mean Corpuscular Hgb 30.4 pg (27.0-32.0); Mean Corpuscular Volume 92.6 fL (81-99); Monocyte# 0.74 X10^3/uL; NRBC Flagged by Analyzer 0 % (0-5); Neutrophil # 4.94 X10^3/uL (2.7-7.7); Platelet Count 406 K/mm3 (150-450); RBC Distribution Width CV 12.1 % (11.6-14.6); RBC Distribution Width SD 41.2 fl (35.1-43.9); Red Blood Count 4.48 M/mm3 (4.2-5.4); White Blood Count 10.5 K/mm3 (4.4-11.0)
[2020-06-16 07:38] LABS: Anion Gap 5 (5-15); BUN 14 mg/dL (7-18); BUN/Creat Ratio 15.1 RATIO (10-20); Calcium,Total 9.3 mg/dL (8.5-10.1); Chloride 108 mmol/L (98-107); Creatinine, Serum 0.93 mg/dL (0.55-1.02); EST Glomerular Filtration Rate 74 mL/min (>60); Est Glom Filt Rate - Afr Amer 90 mL/min (>60); Estimated Creatinine Clearance 68.69 ml/min; Glucose 114 mg/dL (74-106); Potassium 3.9 mmol/L (3.5-5.1); Sodium Level 139 mmol/L (136-145)
[2020-06-16 07:58] LABS: Mucous, Urine 0 SEEN /hpf (<or=2+); White Blood Cells 0 SEEN /hpf (0-5)
[2020-06-16 08:04] LABS: Color, Urine Yellow (Yellow); Glucose, Dipstick Normal (Normal); Ketone-Dipstick Negative (Negative); Leukocyte Esterase-Dipstick 25 /ul (Negative); Nitrite-Dipstick Negative (Negative); Occult Blood-Urine 250 /ul (Negative); Protein-Dipstick 15 mg/dl (Negative); Urine Bilirubin Dipstick Negative (Negative); Urine Clarity Sl. Cloudy (Clear); Urine Urobilinogen Normal (Normal)
[2020-06-16 08:08] LABS: Internal QC Validated? YES +Cl - CLEAR BKGD; Pregnancy, Urine Negative Negative
[2020-06-16 08:10] LABS: Bacteria RARE /hpf (None Seen); Red Blood Cells-Urine 0-5 SEEN /hpf (0-5); Squamous Epithelial Cells - UA 0-5 SEEN /hpf (5-10)
[2020-06-16 09:22] VITALS: BP 114/68; PULSE 62; RESP 16; O2SAT 100
== END 2020-06-16 09:23 | disposition home or self-care (01) ==
PROVIDERS: Emergency Provider Emergency Medicine; PCP Internal Medicine
DX: N13.2 Hydronephrosis with renal and ureteral calculous obstruction (principal); K59.09 Other constipation; Z79.899 Other long term (current) drug therapy; Z87.442 Personal history of urinary calculi; Z88.0 Allergy status to penicillin
CPT/HCPCS: 74176; 80048; 81001; 81025; 85025; 96361; 96374; 96375; 96376; 99283; J7030; A4216; J2405

== ENCOUNTER → 2020-10-11 09:00 | Outpatient (CLI) | payer OTHER, SELFPAY ==
[2020-10-11 08:50] VITALS: BMI 33.0
[2020-10-11 12:05] LABS: Absolute Lymphocyte Count 2.42 X10^3/uL (0.83-4.51); Basophil# 0.03 X10^3/uL; Basophil% 0.5 % (0-1); Eosinophil# 0.08 X10^3/uL; Eosinophils% 1.3 % (0-5); Hematocrit 39.6 % (37-47); Hemoglobin 12.9 g/dL (12.0-15.0); Lymphocyte # 2.42 X10^3/ul (0.83-4.51); Lymphocyte % 40.7 % (19-41); Mean Corp Hgb Conc 32.6 g/dL (32-36); Mean Corpuscular Hgb 30.6 pg (27.0-32.0); Mean Corpuscular Volume 94.1 fL (81-99); Mean Platelet Vol. 11.3 fl (6.2-12.0); Monocyte% 6.7 % (0-10); NRBC Flagged by Analyzer 0 % (0-5); Neutrophil % 50.6 % (47-70); Platelet Count 325 K/mm3 (150-450); RBC Distribution Width CV 12.7 % (11.6-14.6); RBC Distribution Width SD 43.6 fl (35.1-43.9); Red Blood Count 4.21 M/mm3 (4.2-5.4); White Blood Count 5.9 K/mm3 (4.4-11.0)
[2020-10-11 12:20] LABS: ALB/GLOB Ratio 1.1 RATIO (0.9-2.4); AST(SGOT) 12 U/L (15-37); Alanine Aminotransfer ALT/SGPT 24 U/L (13-56); Albumin, Serum 4.1 g/dL (3.2-5.0); Alkaline Phosphatase 47 U/L (45-117); Anion Gap 6 (5-15); BUN 12 mg/dL (7-18); BUN/Creat Ratio 12.8 RATIO (10-20); Calcium,Total 8.8 mg/dL (8.5-10.1); Chloride 109 mmol/L (98-107); Cholesterol 176 mg/dL (200); Creatinine, Serum 0.94 mg/dL (0.55-1.02); EST Glomerular Filtration Rate 73 mL/min (>60); Est Glom Filt Rate - Afr Amer 88 mL/min (>60); Globulin 3.7 g/dL (2.2-4.2); Glucose 107 mg/dL (74-106); High Density Lipoprotein 40 mg/dL; Potassium 3.7 mmol/L (3.5-5.1); Protein, Total 7.8 g/dL (6.4-8.2); Sodium Level 140 mmol/L (136-145); Triglycerides 54 mg/dL; Very Low Density Lipoprotein 11 mg/dL (5-40)
== END ==
PROVIDERS: PCP Internal Medicine; Referring Provider Internal Medicine; Visit Provider Internal Medicine
DX: Z00.00 Encounter for general adult medical examination without abnormal findings (principal)
CPT/HCPCS: 36415; 80053; 80061; 85025

== ENCOUNTER 2021-04-05 13:38 | Outpatient (CLI) | payer OTHER, SELFPAY ==
[2021-04-13 13:16] LABS: HPV APTIMA, High Risk Negative (Negative)
== END 2021-04-05 23:59 | disposition short-term general hospital (02) ==
LOC: LABSPEC 13:55
PROVIDERS: PCP Internal Medicine; Visit Provider Obstetrics & Gynecology
DX: Z12.4 Encounter for screening for malignant neoplasm of cervix (principal)
CPT/HCPCS: 87624; 88175; G0145

== ENCOUNTER → 2022-02-02 | Outpatient (CLI) | payer OTHER, SELFPAY ==
[2022-02-02 12:18] LABS: Absolute Lymphocyte Count 2.18 X10^3/uL (0.83-4.51); Absolute Neutrophil Count 3.2 X10^3/uL (2.0-7.7); Basophil# 0.04 X10^3/uL; Basophil% 0.7 % (0-1); Eosinophil# 0.07 X10^3/uL; Eosinophils% 1.2 % (0-5); Hematocrit 39.7 % (37-47); Hemoglobin 12.9 g/dL (12.0-15.0); Lymphocyte # 2.18 X10^3/ul (0.83-4.51); Lymphocyte % 36.9 % (19-41); Mean Corp Hgb Conc 32.5 g/dL (32-36); Mean Corpuscular Hgb 30.1 pg (27.0-32.0); Mean Corpuscular Volume 92.5 fL (81-99); Mean Platelet Vol. 11.2 fl (6.2-12.0); Monocyte# 0.38 X10^3/uL; Monocyte% 6.4 % (0-10); NRBC Flagged by Analyzer 0 % (0-5); Neutrophil # 3.22 X10^3/uL (2.7-7.7); Neutrophil % 54.6 % (47-70); Platelet Count 316 K/mm3 (150-450); RBC Distribution Width CV 12.6 % (11.6-14.6); RBC Distribution Width SD 42.5 fl (35.1-43.9); Red Blood Count 4.29 M/mm3 (4.2-5.4); White Blood Count 5.9 K/mm3 (4.4-11.0)
[2022-02-02 12:33] LABS: ALB/GLOB Ratio 1.1 RATIO (0.9-2.4); AST(SGOT) 13 U/L (15-37); Alanine Aminotransfer ALT/SGPT 20 U/L (13-56); Albumin, Serum 4.1 g/dL (3.2-5.0); Alkaline Phosphatase 49 U/L (45-117); Anion Gap 8 (5-15); BUN 13 mg/dL (7-18); BUN/Creat Ratio 15.8 RATIO (10-20); Calcium,Total 9.2 mg/dL (8.5-10.1); Chloride 109 mmol/L (98-107); Cholesterol 185 mg/dL (200); Creatinine, Serum 0.82 mg/dL (0.55-1.02); EST Glomerular Filtration Rate 84 mL/min (>60); Est Glom Filt Rate - Afr Amer 102 mL/min (>60); Globulin 3.7 g/dL (2.2-4.2); Glucose 105 mg/dL (74-106); High Density Lipoprotein 50 mg/dL; Potassium 4.1 mmol/L (3.5-5.1); Protein, Total 7.8 g/dL (6.4-8.2); Sodium Level 141 mmol/L (136-145); Triglycerides 39 mg/dL; Very Low Density Lipoprotein 8 mg/dL (5-40)
== END | disposition home or self-care (01) ==
LOC: BIMLAB 09:27
PROVIDERS: PCP Internal Medicine; Referring Provider Internal Medicine; Visit Provider Internal Medicine
DX: Z00.00 Encounter for general adult medical examination without abnormal findings (principal)
CPT/HCPCS: 36415; 80053; 80061; 85025

== ENCOUNTER → 2022-12-25 | Outpatient (CLI) | payer OTHER, SELFPAY ==
[2022-12-25 12:19] LABS: Absolute Lymphocyte Count 2.29 X10^3/uL (0.83-4.51); Absolute Neutrophil Count 3.5 X10^3/uL (2.0-7.7); Basophil# 0.05 X10^3/uL; Basophil% 0.8 % (0-1); Eosinophil# 0.16 X10^3/uL; Eosinophils% 2.5 % (0-5); Hematocrit 39.6 % (37-47); Hemoglobin 12.9 g/dL (12.0-15.0); Lymphocyte # 2.29 X10^3/ul (0.83-4.51); Lymphocyte % 35.6 % (19-41); Mean Corp Hgb Conc 32.6 g/dL (32-36); Mean Corpuscular Hgb 30.9 pg (27.0-32.0); Mean Platelet Vol. 10.6 fl (6.2-12.0); Monocyte# 0.45 X10^3/uL; NRBC Flagged by Analyzer 0 % (0-5); Neutrophil # 3.46 X10^3/uL (2.7-7.7); Neutrophil % 53.6 % (47-70); Platelet Count 343 K/mm3 (150-450); RBC Distribution Width CV 12.5 % (11.6-14.6); RBC Distribution Width SD 43.5 fl (35.1-43.9); Red Blood Count 4.17 M/mm3 (4.2-5.4); White Blood Count 6.4 K/mm3 (4.4-11.0)
[2022-12-25 12:34] LABS: ALB/GLOB Ratio 0.9 RATIO (0.9-2.4); AST(SGOT) 17 U/L (15-37); Alanine Aminotransfer ALT/SGPT 29 U/L (13-56); Albumin, Serum 3.7 g/dL (3.2-5.0); Alkaline Phosphatase 53 U/L (45-117); Anion Gap 2 (5-15); BUN 15 mg/dL (7-18); BUN/Creat Ratio 18.7 RATIO (10-20); Calcium,Total 8.6 mg/dL (8.5-10.1); Chloride 111 mmol/L (98-107); Cholesterol 176 mg/dL (200); EST Glomerular Filtration Rate 86 mL/min (>60); Est Glom Filt Rate - Afr Amer 105 mL/min (>60); Globulin 4.1 g/dL (2.2-4.2); Glucose 109 mg/dL (74-106); High Density Lipoprotein 53 mg/dL; Potassium 4.2 mmol/L (3.5-5.1); Protein, Total 7.8 g/dL (6.4-8.2); Sodium Level 138 mmol/L (136-145); Triglycerides 50 mg/dL; Very Low Density Lipoprotein 10 mg/dL (5-40)
== END | disposition home or self-care (01) ==
LOC: BIMLAB 09:24
PROVIDERS: PCP Internal Medicine; Referring Provider Internal Medicine; Visit Provider Internal Medicine
DX: Z00.00 Encounter for general adult medical examination without abnormal findings (principal)
CPT/HCPCS: 36415; 80053; 80061; 85025

== ENCOUNTER → 2023-03-29 | Outpatient (CLI) | payer OTHER, SELFPAY ==
--- OUTSIDE RECORDS SUMMARY | 2023-03-29 08:31 | XMS RPT_ITS | CCD ---
Author Name Unknown Address [address] [place] [id number] Organization [facility] Results Test Name Value Interpretation Reference Range Facil ity Summary Purpose Family History No Family History Records Found Advance Directives No Advanced Directives Records Found Additional Source Comments INFORMATION SOURCE (unrecogn ized section and content) FOR RECORDS PERTAINING TO PATIENTS WHO ARE OR HAVE BEEN ENROLLED IN A CHEMICAL DEPENDENCY/SUBSTANCEABUSE PROGRAM, SOME INFORMATION MAY BE OMITTED. This clinical summary was aggregated from multiple sources. Caution should be exercised in using it in the provision of clinical care. This summary normalizes information from multiple sources, and as a consequence, information in this document may materially change the coding, format and clinical context of patient data. In addition, data may be omitted in some cases. CLINICAL DECISIONS SHOULD BE BASED ON THE PRIMARY CLINICAL RECORDS. What the [employer] [facility]. provides no warranty or guarantee of the accuracy or completeness of information in this document.
[2023-03-29 12:43] LABS: Absolute Lymphocyte Count 2.12 X10^3/uL (0.83-4.51); Absolute Neutrophil Count 3.5 X10^3/uL (2.0-7.7); Basophil# 0.04 X10^3/uL; Basophil% 0.6 % (0-1); Eosinophil# 0.13 X10^3/uL; Eosinophils% 2.1 % (0-5); Hematocrit 39.6 % (37-47); Hemoglobin 12.8 g/dL (12.0-15.0); Lymphocyte # 2.12 X10^3/ul (0.83-4.51); Lymphocyte % 34.2 % (19-41); Mean Corp Hgb Conc 32.3 g/dL (32-36); Mean Corpuscular Hgb 30.1 pg (27.0-32.0); Mean Corpuscular Volume 93.2 fL (81-99); Mean Platelet Vol. 10.4 fl (6.2-12.0); Monocyte# 0.43 X10^3/uL; Monocyte% 6.9 % (0-10); NRBC Flagged by Analyzer 0 % (0-5); Neutrophil # 3.46 X10^3/uL (2.7-7.7); Neutrophil % 55.9 % (47-70); Platelet Count 305 K/mm3 (150-450); RBC Distribution Width CV 12.9 % (11.6-14.6); RBC Distribution Width SD 43.8 fl (35.1-43.9); Red Blood Count 4.25 M/mm3 (4.2-5.4); White Blood Count 6.2 K/mm3 (4.4-11.0)
[2023-03-29 13:09] LABS: Vitamin D,25 Hydroxy 16.9 ng/mL
[2023-03-29 13:14] LABS: AST(SGOT) 17 U/L (15-37); Alanine Aminotransfer ALT/SGPT 26 U/L (13-56); Albumin, Serum 3.9 g/dL (3.2-5.0); Alkaline Phosphatase 49 U/L (45-117); Anion Gap 8 (5-15); BUN 16 mg/dL (7-18); BUN/Creat Ratio 18.4 RATIO (10-20); Calcium,Total 8.8 mg/dL (8.5-10.1); Chloride 109 mmol/L (98-107); Creatinine, Serum 0.87 mg/dL (0.55-1.02); EST Glomerular Filtration Rate 79 mL/min (>60); Est Glom Filt Rate - Afr Amer 95 mL/min (>60); Free T3 2.3 pg/mL (2.18-3.98); Globulin 3.9 g/dL (2.2-4.2); Glucose 105 mg/dL (74-106); Protein, Total 7.8 g/dL (6.4-8.2); Sodium Level 138 mmol/L (136-145); T4 Free Direct 0.96 ng/dL (0.76-1.46); Thyroid Stim Hormone (TSH) 1.96 uIU/mL (0.358-3.74)
[2023-03-29 13:52] LABS: Hemoglobin A1c 5.1 % (3.8-5.6)
[2023-03-29 13:55] LABS: Internal QC Validated? YES +Cl - CLEAR BKGD; Monotest Negative (Negative); Record Kit Lot#, Mono 13231163
== END | disposition home or self-care (01) ==
LOC: BIMLAB 08:00
PROVIDERS: PCP Internal Medicine; Referring Provider Nurse Practitioner; Visit Provider Nurse Practitioner
DX: R63.5 Abnormal weight gain (principal); R53.83 Other fatigue
CPT/HCPCS: 36415; 80053; 82306; 83036; 84439; 84443; 84481; 85025; 86308

== ENCOUNTER → 2023-04-09 | Outpatient (CLI) | payer OTHER, SELFPAY ==
--- OUTSIDE RECORDS SUMMARY | 2023-04-09 10:00 | XMS RPT_ITS | CCD ---
Author Name Unknown Address [address] [place] [id number] Organization [facility] Results Test Name Value Interpretation [...] BE BASED ON THE PRIMARY CLINICAL RECORDS. [email or web address] [facility]. provides no warranty or guarantee of the accuracy or completeness of information in this document.
[2023-04-09 13:23] LABS: Progesterone Level 0.67 ng/mL (See Comment)
[2023-04-10 12:09] LABS: ANTINUCLEAR ANTIBODIES DIRECT Negative (Negative)
[2023-04-15 14:07] LABS: Adrenocorticotropic Hormone 27.5 pg/mL (7.2-63.3); Estrogen, Total, Serum 165 pg/mL (.); Testosterone, % Free 2.48 % (0.50-2.80); Testosterone, Free 0.57 ng/dL (0.10-0.85); Testosterone, Total 23 ng/dL (8-60)
== END | disposition home or self-care (01) ==
LOC: BIMLAB 09:33
PROVIDERS: PCP Internal Medicine; Referring Provider Nurse Practitioner; Visit Provider Nurse Practitioner
DX: R53.83 Other fatigue (principal); R63.5 Abnormal weight gain
CPT/HCPCS: 36415; 82024; 82627; 82672; 84144; 84402; 84403; 86038; 86225; 86235; 82626

== ENCOUNTER → 2023-04-11 | Outpatient (CLI) | payer OTHER, SELFPAY ==
[2023-04-17 07:08] LABS: Cortisol, Free 24Ur 7 ug/24 hr (6-42); Cortisol, Urinary Free 9 ug/L (Undefined)
== END | disposition home or self-care (01) ==
PROVIDERS: PCP Internal Medicine; Visit Provider Nurse Practitioner
DX: R63.5 Abnormal weight gain (principal); R53.83 Other fatigue
CPT/HCPCS: 82530

== ENCOUNTER → 2024-02-06 | Outpatient (CLI) | payer OTHER, SELFPAY ==
[2024-02-06 16:53] LABS: Absolute Lymphocyte Count 2.69 X10^3/uL (0.83-4.51); Absolute Neutrophil Count 5.2 X10^3/uL (2.0-7.7); Basophil# 0.07 X10^3/uL; Basophil% 0.8 % (0-1); Eosinophil# 0.13 X10^3/uL; Eosinophils% 1.5 % (0-5); Hematocrit 38.7 % (37-47); Hemoglobin 12.9 g/dL (12.0-15.0); Lymphocyte # 2.69 X10^3/ul (0.83-4.51); Mean Corp Hgb Conc 33.3 g/dL (32-36); Mean Corpuscular Hgb 30.4 pg (27.0-32.0); Mean Corpuscular Volume 91.3 fL (81-99); Mean Platelet Vol. 10.6 fl (6.2-12.0); Monocyte# 0.57 X10^3/uL; Monocyte% 6.6 % (0-10); NRBC Flagged by Analyzer 0 % (0-5); Neutrophil # 5.21 X10^3/uL (2.7-7.7); Neutrophil % 59.9 % (47-70); Platelet Count 376 K/mm3 (150-450); RBC Distribution Width CV 12.7 % (11.6-14.6); RBC Distribution Width SD 41.7 fl (35.1-43.9); Red Blood Count 4.24 M/mm3 (4.2-5.4); White Blood Count 8.7 K/mm3 (4.4-11.0)
[2024-02-06 17:13] LABS: AST(SGOT) 35 U/L (15-37); Alanine Aminotransfer ALT/SGPT 59 U/L (13-56); Albumin, Serum 3.9 g/dL (3.2-5.0); Alkaline Phosphatase 58 U/L (45-117); Anion Gap 7 (5-15); BUN 12 mg/dL (7-18); BUN/Creat Ratio 14.8 RATIO (10-20); Calcium,Total 9.1 mg/dL (8.5-10.1); Chloride 106 mmol/L (98-107); Creatinine, Serum 0.81 mg/dL (0.55-1.02); EST Glomerular Filtration Rate 85 mL/min (>60); Est Glom Filt Rate - Afr Amer 103 mL/min (>60); Globulin 4.1 g/dL (2.2-4.2); Glucose 94 mg/dL (74-106); Potassium 3.5 mmol/L (3.5-5.1); Sodium Level 139 mmol/L (136-145)
[2024-02-06 17:17] LABS: Vitamin B12 1177 pg/mL (211-911)
== END | disposition home or self-care (01) ==
LOC: BWCLAB 15:40
PROVIDERS: PCP Internal Medicine; Referring Provider Nurse Practitioner Family; Visit Provider Nurse Practitioner Family
DX: Z13.21 Encounter for screening for nutritional disorder (principal); R53.83 Other fatigue
CPT/HCPCS: 36415; 80053; 82306; 82607; 85025

== ENCOUNTER → 2024-02-12 | Outpatient (CLI) | payer OTHER, SELFPAY ==
--- NOTE | 2024-02-12 09:25 | US_ITS ---
STUDY: ULTRASOUND BREAST - RIGHT REASON FOR EXAM: Female, 38 years old. Bilateral breast tenderness. TECHNIQUE: Axial and longitudinal images of the RIGHT breast were performed with a high resolution ultrasound transducer. # OF IMAGES: 31 COMPARISON: Comparison is made with prior mammogram done earlier in the day. FINDINGS: RIGHT Breast: The lateral aspect of the right breast was examined with ultrasound. There is heterogeneously dense fibroglandular tissue. No sonographic abnormality is seen. IMPRESSION: No sonographic abnormality is seen. ASSESSMENT CATEGORY: BIRADS Category 1: Negative. A letter regarding these results will be sent to the patient by the facility within 30 days. Electronically Signed: Devaughn Sy MD at 10:00 EST , STUDY: ULTRASOUND BREAST - LEFT REASON FOR EXAM: Female, 38 years old. Lateral breast tenderness. TECHNIQUE: Axial and longitudinal images of the LEFT breast were performed with a high resolution ultrasound transducer. # OF IMAGES: 31 COMPARISON: Comparison is made with prior mammogram done earlier in the day. FINDINGS: LEFT Breast: The lateral half of the breast was examined with ultrasound. No sonographic abnormality is seen. US/Breast Limited Unilateral IMPRESSION: No sonographic abnormality is seen. ASSESSMENT CATEGORY: BIRADS Category 1: Negative. A letter regarding these results will be sent to the patient by the facility within 30 days. Electronically Signed: Devaughn Sy MD at 10:01 [facility] ,
--- NOTE | 2024-02-12 09:25 | BI_ITS ---
MAMMOGRAPHY - BILATERAL DIAGNOSTIC REASON FOR EXAM: Female, 38 years old. Bilateral outer breast tenderness for 3 weeks. Remote left excisional breast biopsy. PERTINENT HISTORY: Non-contributory. TECHNIQUE: Digital bilateral breast sarath (3D mammographic acquisition) in the CC and MLO projections. 2-D mediolateral oblique (MLO) and craniocaudad (CC) views of both breasts were obtained. CAD: Full Field Digital Mammography with Computer Added Detection was performed. COMPARISON: None. Baseline examination. FINDINGS: Breast Composition: The breasts are heterogeneously dense, which may obscure small masses. There are no dominant masses or suspicious calcifications. Fat-containing bilateral axillary lymph nodes. No other significant abnormalities are identified. BI/DIAG MAMM W/CAD, BILAT IMPRESSION: Negative diagnostic mammogram. With the patient''s history of bilateral outer breast tenderness, correlation with ultrasound is recommended. ASSESSMENT CATEGORY: BIRADS Category 0: Incomplete. Need additional imaging evaluation. A letter regarding these results will be sent to the patient by the facility within 30 days. Approximately 10% of breast cancers are not detected by mammography. A normal mammogram should not delay biopsy of a clinically suspicious abnormality. Electronically Signed: Devaughn Sy MD at 10:20 EST ,
== END | disposition home or self-care (01) ==
PROVIDERS: PCP Internal Medicine; Referring Provider Nurse Practitioner Family; Visit Provider Nurse Practitioner Family
DX: N64.4 Mastodynia (principal)
CPT/HCPCS: 76642; 77062; 77066; G0279

== ENCOUNTER → 2024-03-03 | Outpatient (CLI) | payer OTHER, SELFPAY ==
[2024-03-03 13:09] LABS: Cholesterol 212 mg/dL (200); High Density Lipoprotein 59 mg/dL; Triglycerides 92 mg/dL; Very Low Density Lipoprotein 18 mg/dL (5-40)
== END | disposition home or self-care (01) ==
LOC: BIMLAB 11:28
PROVIDERS: PCP Internal Medicine; Referring Provider Internal Medicine; Visit Provider Internal Medicine
DX: Z13.6 Encounter for screening for cardiovascular disorders (principal)
CPT/HCPCS: 36415; 80061

== ENCOUNTER → 2024-04-02 | Outpatient (CLI) | payer OTHER, SELFPAY | END | disposition home or self-care (01) | LOC: SL 15:05 | PROVIDERS: PCP Internal Medicine; Referring Provider Internal Medicine; Visit Provider Internal Medicine | DX: G47.10 Hypersomnia, unspecified (principal) | CPT/HCPCS: 95806 ==

== ENCOUNTER 2024-09-10 09:02 | Outpatient (CLI) | payer OTHER, SELFPAY ==
[2024-09-10 12:46] LABS: Hematocrit 36.8 % (37-47); Hemoglobin 12.2 g/dL (12.0-15.0); Immature Granulocytes Count 0.010 X10^3/uL (0.0-0.0); Mean Corp Hgb Conc 33.2 g/dL (32-36); Mean Corpuscular Volume 93.4 fL (81-99); Mean Platelet Vol. 10.6 fl (6.2-12.0); NRBC Flagged by Analyzer 0 % (0-5); Platelet Count 349 K/mm3 (150-450); RBC Distribution Width CV 12.6 % (11.6-14.6); RBC Distribution Width SD 43.2 fl (35.1-43.9); Red Blood Count 3.94 M/mm3 (4.2-5.4); White Blood Count 6.0 K/mm3 (4.4-11.0)
[2024-09-10 13:32] LABS: AST(SGOT) 17 U/L (<=31); Alanine Aminotransfer ALT/SGPT 14 U/L (<=34); Albumin, Serum 4.3 g/dL (3.5-5.0); Alkaline Phosphatase 58 U/L (35-104); Anion Gap 10 (5-15); BUN 7 mg/dL (4-19); BUN/Creat Ratio 8.6 RATIO (10-20); Calcium,Total 8.9 mg/dL (7.6-11.0); Carbon Dioxide 23.1 mmol/L (21.0-32.0); Chloride 106 mmol/L (98-108); Globulin 2.8 g/dL (2.2-4.2); Glucose 101 mg/dL (70-99); Potassium 3.9 mmol/L (3.3-5.1)
[2024-09-10 16:34] LABS: Vitamin D,25 Hydroxy 32.1 ng/mL (30-100)
== END 2024-09-10 23:59 | disposition home or self-care (01) ==
LOC: BIMLAB 09:03
PROVIDERS: Nurse Practitioner Family; PCP Internal Medicine; Referring Provider Internal Medicine; Visit Provider Internal Medicine
DX: K59.09 Other constipation (principal); Z13.21 Encounter for screening for nutritional disorder
CPT/HCPCS: 36415; 80053; 82306; 85025